=== PATIENT | female | born 1975 | race Caucasian/White ===

== ENCOUNTER 2017-04-29 18:41 | Emergency (ER) | payer OTHER ==
[~2017-04-29] VITALS: Ht 162.5 cm; Wt 61.7 kg
[~2017-04-29 18:41] MED LIST: ALBUTEROL0.09 MG/A2 INH; ATIVAN1 MG PO; BACTRIM DS 8001 TA1 PO; PERCOCET 325 MG1 TA3 PO; PHENERGAN W/ DE30 ML PO; PREDNICOT10 MG PO; PYRIDIUM200 MG PO; Percocet 325 MG1 TAB PO
[2017-04-29] MEDS ORDERED: NOVAPLUS V0.09 MG/Ac INH (18:48)
[2017-04-29] MEDS ORDERED: NEURONTIN300 MG PO (18:48)
[2017-04-29] MEDS ORDERED: SERTRALINE HYDR50 MG PO (18:49)
== END 2017-04-29 20:18 | disposition home or self-care (01) ==
LOC: ED 18:41
DX: S93.602A Unspecified sprain of left foot, initial encounter (principal); S90.812A Abrasion, left foot, initial encounter; F17.200 Nicotine dependence, unspecified, uncomplicated; W18.00XA Striking against unspecified object with subsequent fall, initial encounter; Y93.89 Activity, other specified; Y92.9 Unspecified place or not applicable; Y99.9 Unspecified external cause status

== ENCOUNTER → 2021-10-31 | Outpatient (CLI) | payer OTHER ==
[~2021-10-31] MED LIST changes: +NEURONTIN300 MG PO; +NOVAPLUS V0.09 MG/Ac INH; +SERTRALINE HYDR50 MG PO
== END | disposition home or self-care (01) ==
LOC: COVID19 16:36
PROVIDERS: ATTEND Internal Medicine
DX: Z20.822 Contact with and (suspected) exposure to COVID-19 (principal)